=== PATIENT | male | born 1970 | race Caucasian/White ===

== ENCOUNTER 2018-06-09 13:44 | Emergency (ER) | payer BC ==
--- NOTE | 2018-06-09 14:04 | CR ---
EXAMINATION: Left foot HISTORY: Pain COMPARISON: None TECHNIQUE: 2 views FINDINGS/IMPRESSION: There is no acute osseous abnormality, dislocation, or fracture. Early osteophyt ic changes noted at the first MTP joint and a tiny plantar calcaneal spur is noted. Bone mineralizati on and joint spaces are otherwise preserved.
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
[2018-06-09 16:00] VITALS: BP 107/80
== END 2018-06-09 16:10 | disposition home or self-care (01) ==
LOC: MW.ED 13:44
DX: L03.116 Cellulitis of left lower limb (principal)
CPT/HCPCS: 36415; 73620-26-LT; 73620-LT; 80053; 84550; 85025; 86140; 99282; 99283